=== PATIENT | male | born 1965 | race Caucasian/White ===

== ENCOUNTER 2023-02-12 08:52 | Day surgery (SDC) | payer BC ==
[~2023-02-12 08:52] MED LIST: Lactated Ringers 1,000 ML IV SCH; Lidocaine 1%/Sod Bicarbonate in NS 8.4% 1 ML Syringe IDERM PRN; Sodium Chloride 0.9% 10 ML Syringe FLUSH PRN; Sodium Chloride 0.9% 10 ML Syringe FLUSH SCH
[2023-02-12] MEDS ORDERED: Lidocaine 1% 2 ML ONE (09:39)
[2023-02-12] MEDS ORDERED: Propofol 200 MG/20 ML SDV ONE ×3 (09:39→10:17)
[2023-02-12] MEDS ORDERED: fentaNYL 100 MCG/2 ML SDV ONE (09:39)
[2023-02-12] MEDS ORDERED: Midazolam 1 MG/ML 2 ML SDV ONE (09:40)
== END 2023-02-12 11:17 | disposition home or self-care (01) ==
LOC: JD.SDS 08:52
PROVIDERS: ATTEND Surgery
DX: D12.2 Benign neoplasm of ascending colon (principal); D12.3 Benign neoplasm of transverse colon; D17.79 Benign lipomatous neoplasm of other sites; K44.9 Diaphragmatic hernia without obstruction or gangrene; K57.30 Diverticulosis of large intestine without perforation or abscess without bleeding; K22.89 Other specified disease of esophagus; M19.90 Unspecified osteoarthritis, unspecified site; K21.9 Gastro-esophageal reflux disease without esophagitis; Z79.899 Other long term (current) drug therapy; Z80.0 Family history of malignant neoplasm of digestive organs; Z87.891 Personal history of nicotine dependence; Z98.890 Other specified postprocedural states
CPT/HCPCS: 43235; 45385; J2250; J2704; J3010; J7120; 00813; J3490

== ENCOUNTER 2023-09-05 09:30 | Day surgery (SDC) | payer BC ==
[~2023-09-05 09:30] MED LIST changes: -Lidocaine 1%/Sod Bicarbonate in NS 8.4% 1 ML Syringe IDERM PRN
[2023-09-05] MEDS ORDERED: ceFAZolin 2 GM Vial ONE (11:01)
[2023-09-05] MEDS ORDERED: Propofol 200 MG/20 ML SDV ONE (11:19)
[2023-09-05] MEDS ORDERED: fentaNYL 100 MCG/2 ML SDV ONE (11:19)
[2023-09-05] MEDS ORDERED: Midazolam 1 MG/ML 2 ML SDV ONE (11:19)
[2023-09-05] MEDS ORDERED: Lidocaine 1% 4 ML ONE (11:20)
[2023-09-05] MEDS ORDERED: Bupivacaine 0.5% 30 ML SDV ONE (11:39)
[2023-09-05] MEDS ORDERED: Lidocaine 1% 30 ML SDV ONE (11:39)
[2023-09-05] MEDS ORDERED: EPINEPHrine 1 MG/ML SDV ONE (11:40)
[2023-09-05] MEDS ORDERED: Lactated Ringers 1,000 ML IV ONE (12:00)
[2023-09-05] MEDS ORDERED: Ondansetron 4 MG/2 ML SDV IVPUSH ONE (12:24)
[2023-09-05] MEDS ORDERED: fentaNYL 100 MCG/2 ML SDV IVPUSH PRN (12:24)
== END 2023-09-05 13:50 | disposition home or self-care (01) ==
LOC: JD.SDS 09:30
PROVIDERS: ATTEND Specialist
DX: D17.21 Benign lipomatous neoplasm of skin and subcutaneous tissue of right arm (principal); K21.9 Gastro-esophageal reflux disease without esophagitis; E78.5 Hyperlipidemia, unspecified; Z87.891 Personal history of nicotine dependence; Z79.899 Other long term (current) drug therapy
CPT/HCPCS: 24071; J0171; J0690; J2250; J2704; J3010; J3490; J7120; 00400

== ENCOUNTER 2025-04-20 06:23 | Day surgery (SDC) | payer BC ==
[~2025-04-20 06:23] MED LIST changes: -Lactated Ringers 1,000 ML IV SCH
[2025-04-20] MEDS: Lactated Ringers 1,000 ML IV SCH (06:45)
[2025-04-20] MEDS ORDERED: Propofol 200 MG/20 ML SDV ONE ×2 (07:05→07:28)
[2025-04-20] MEDS ORDERED: Lidocaine 1% 4 ML ONE (07:28)
== END 2025-04-20 08:24 | disposition home or self-care (01) ==
LOC: JD.SDS 06:23
PROVIDERS: ATTEND Surgery
DX: Z12.11 Encounter for screening for malignant neoplasm of colon (principal); K57.30 Diverticulosis of large intestine without perforation or abscess without bleeding; K31.84 Gastroparesis; Z87.891 Personal history of nicotine dependence; Z79.899 Other long term (current) drug therapy
CPT/HCPCS: 45378; J2003; J2704; J7120; 00812